=== PATIENT | male | born 1980 | race Caucasian/White ===

== ENCOUNTER 2020-07-05 23:09 | Emergency (ER) | payer OTHER, SELFPAY ==
[2020-07-05 23:17] VITALS: BP 104/59; PULSE 62; RESP 16; TEMP 36.1; O2SAT 99; BMI 35.5
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
== END 2020-07-06 00:23 | disposition home or self-care (01) ==
PROVIDERS: Emergency Provider Internal Medicine
DX: M79.632 Pain in left forearm (principal); Z57.5 Occupational exposure to toxic agents in other industries; T22.512A Corrosion of first degree of left forearm, initial encounter; T32.0 Corrosions involving less than 10% of body surface; Y93.9 Activity, unspecified; Y92.9 Unspecified place or not applicable; Y99.0 Civilian activity done for income or pay
CPT/HCPCS: 99283; 99284

== ENCOUNTER 2022-07-19 09:28 | Emergency (ER) | payer OTHER, SELFPAY ==
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
[2022-07-19 09:40] VITALS: BP 114/73; PULSE 86; RESP 14; O2SAT 96; BMI 43.4
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
[2022-07-19] MEDS: Diphth,Pertus(ACell),Tet Adult 0.5 ML SYRINGE IM (10:24)
== END 2022-07-19 12:35 | disposition home or self-care (01) ==
PROVIDERS: Emergency Provider Emergency Medicine
DX: S41.132A Puncture wound without foreign body of left upper arm, initial encounter (principal); S40.812A Abrasion of left upper arm, initial encounter; Y04.2XXA Assault by strike against or bumped into by another person, initial encounter; Y93.9 Activity, unspecified; Y92.9 Unspecified place or not applicable; Y99.9 Unspecified external cause status
CPT/HCPCS: 73090; 90471; 90715; 99283; 99284